=== PATIENT | male | born 1950 | race Caucasian/White ===

== ENCOUNTER → 2017-04-18 | Outpatient (CLI) | payer MEDICARE, BC ==
--- NOTE | 2017-04-24 16:25 | SS ---
ADMIT: 04/18/2017 RM/LOC: [facility] MR#: [id number] [address] [id number] [address] [place] [address] Sleep Study SEX: M AGE: 66 : 1950 STUDY DATE: 04/18/2017 CLINICAL HISTORY: This is a 66-year-old male, body mass index of 30.4, 75 inches tall, 245 pounds, symptoms of snoring, daytime sleepiness, fatigue, undergoing evaluation for obstructive sleep apnea. TECHNICAL DESCRIPTION: Diagnostic polysomnogram performed on night of 04/18/2017, attended by a trained environmental health technologist. DIAGNOSTIC POLYSOMNOGRAM FINDINGS: SLEEP: Total time in bed is 362.5 minutes, total sleep time 351.5 minutes, sleep efficiency 97%. 97% hours spent in stage II sleep. No REM sleep was seen. The patient did have a deep brain stimulator and hence significant electrical interference was noted with all EEG channels. It is very unclear to define sleep versus wake based on this polysomnogram given significant electrical interference from deep brain stimulator on EEG channels. BREATHING: Moderate loud snoring noted. No significant obstructive sleep apnea noted. Apnea-hypopnea 0.2. OXYGEN SATURATION: Average oxygen saturation 91%. Lowest oxygen saturation was 85%. 9.2% of time was spent saturating 80% to 89%. CARDIAC: Average heart rate 70 beats per minute. MOVEMENTS/POSITION: During the study, the patient slept in the lateral position predominantly, brief time in the supine position with periodic leg movement index of 3.8. IMPRESSION/PLAN: Technically limited sleep study because of electrical interference from deep brain stimulator interfering with EEG channels thus making it very difficult to differentiate sleep stages and to differentiate sleep from wake. Moderate snoring was noted during the study. Brief oxygen desaturations were noted during the study. No obvious obstructive sleep apnea was noted during the study. Again, this is a technically limited study. Clinical correlation needed. Yasmany Rai MD/ [facility] JOB #: [id number] CC: Constantine Loomis MD, Attending Physician Constantine Loomis MD, Family Physician
== END | disposition home or self-care (01) ==
LOC: RESC 20:01
DX: R06.83 Snoring (principal); R40.0 Somnolence; G47.30 Sleep apnea, unspecified

== ENCOUNTER → 2017-04-19 | Outpatient (CLI) | payer MEDICARE, BC | END | disposition home or self-care (01) | LOC: RAD.S 09:00 | DX: I72.3 Aneurysm of iliac artery (principal) ==